=== PATIENT | male | born 1960 | race Two or more races ===

== ENCOUNTER 2025-03-15 17:30 | Emergency (ER) | payer MEDICAID ==
[~2025-03-15] VITALS: Ht 177.8 cm; Wt 83.9 kg
[2025-03-15] MEDS ORDERED: TDAP [DIPH/PERTUSSIS/TET] 0.5 ML VIAL IM ONE (18:29)
[2025-03-15] MEDS ORDERED: ACETAMINOPHEN 325 MG TABLET ONE (18:29)
[2025-03-15] MEDS: TDAP [DIPH/PERTUSSIS/TET] 0.5 ML VIAL IM ONE (18:36)
[2025-03-15] MEDS: ACETAMINOPHEN 325 MG TABLET PO ONE (18:36)
[2025-03-15] MEDS ORDERED: LIDOCAINE 1%-EPI 1:100,000 20 ML VIAL ONE (20:33)
[2025-03-15] MEDS: LIDOCAINE 1%-EPI 1:100,000 20 ML VIAL TP ONE (20:36)
[2025-03-15] MEDS ORDERED: CEFA500C PO (21:09)
[2025-03-15 22:39] VITALS: BP 142/84; TEMP 97.9; O2SAT 99
== END 2025-03-15 22:40 | disposition home or self-care (01) ==
LOC: ER 17:55
DX: S91.012A Laceration without foreign body, left ankle, initial encounter (principal); I10 Essential (primary) hypertension; V23.09XA Other motorcycle driver injured in collision with car, pick-up truck or van in nontraffic accident, initial encounter; Y93.89 Activity, other specified; Y92.488 Other paved roadways as the place of occurrence of the external cause; Y99.8 Other external cause status
CPT/HCPCS: 12001; 73610; 90471; 90715; 99283; J3490